=== PATIENT | female | born 1945 | race Caucasian/White ===

== ENCOUNTER → 2017-04-10 | Outpatient (CLI) | payer OTHER | LOC: KOH-I 11:18 | DX: Z01.812 Encounter for preprocedural laboratory examination (principal) | CPT/HCPCS: 71020 ==

== ENCOUNTER → 2020-11-22 | Outpatient (CLI) | payer MEDICARE, OTHER | LOC: KOH-I 10:46 | DX: M79.605 Pain in left leg (principal); R22.42 Localized swelling, mass and lump, left lower limb | CPT/HCPCS: 73590; 73610 ==

== ENCOUNTER → 2021-05-13 | Outpatient (CLI) | payer MEDICARE, OTHER | LOC: KOH-I 10:32 | DX: R07.89 Other chest pain (principal); R05 Cough | CPT/HCPCS: 71046; 71100 ==

== ENCOUNTER → 2021-05-17 | Outpatient (CLI) | payer MEDICARE, OTHER | LOC: KOH-I 14:50 | DX: R10.11 Right upper quadrant pain (principal); R06.02 Shortness of breath; R07.81 Pleurodynia | CPT/HCPCS: 71250; 74150 ==

== ENCOUNTER → 2022-01-29 | Outpatient (CLI) | payer MEDICARE, OTHER | LOC: KOH-I 13:03 | DX: J18.9 Pneumonia, unspecified organism (principal) | CPT/HCPCS: 71046 ==

== ENCOUNTER → 2022-08-11 | Outpatient (CLI) | payer MEDICARE, OTHER | LOC: KOH-I 12:47 | DX: R05.9 Cough, unspecified (principal); R06.02 Shortness of breath | CPT/HCPCS: 71046 ==